=== PATIENT | female | born 1960 | race Caucasian/White ===

== ENCOUNTER → 2018-05-15 | Outpatient (CLI) | payer OTHER ==
[~2018-05-15] MED LIST: CARISOPRODOL 3350 M1 PO; DIAZEPAM 5 MG5 M1 PO; MS CONTIN 60 MG60 M1 PO; PERCOCET 5-3251 EACH PO; PREMARIN0.625 MG PO; TIZANIDINE HCL4 MG PO
== END ==
LOC: RAD 13:57
DX: Z12.31 Encounter for screening mammogram for malignant neoplasm of breast (principal)